=== PATIENT | male | born 1950 | race Caucasian/White ===

== ENCOUNTER 2019-12-22 14:46 | Outpatient (CLI) | payer MEDICARE, BC | END 2019-12-22 23:59 | disposition home or self-care (01) | LOC: RAD 14:46 | PROVIDERS: ATTEND Family Medicine | DX: R09.89 Other specified symptoms and signs involving the circulatory and respiratory systems (principal) | CPT/HCPCS: 71046 ==

== ENCOUNTER 2023-08-20 06:55 | Day surgery (SDC) | payer MEDICARE, BC ==
[2023-08-19 15:38] LABS: BASOPHILS % (AUTO) 0.5 % (0-1); EOSINOPHILS # (AUTO) 0.1 X10'3 (0-0.9); EOSINOPHILS % (AUTO) 0.7 % (0-6); HEMATOCRIT 37.8 % (42.0-52.0); HEMOGLOBIN 12.8 g/dl (14.0-17.9); LYMPHOCYTES # (AUTO) 1.5 X10'3 (1.1-4.8); LYMPHOCYTES % (AUTO) 18.7 % (21-51); MEAN CORPUSCULAR HEMOGLOBIN 29.2 PG (27.0-31.0); MEAN CORPUSCULAR VOLUME 86.1 FL (78-98); MEAN PLATELET VOLUME 8.3 FL (7.4-10.4); MONOCYTES # (AUTO) 0.7 X10'3 (0-0.9); MONOCYTES % (AUTO) 8.8 % (2-12); NEUTROPHILS # (AUTO) 5.8 X10'3 (1.8-7.7); NEUTROPHILS % (AUTO) 71.3 % (42-75); PLATELET COUNT 192 X10'3 (140-440); RED BLOOD COUNT 4.39 X10'6 (4.70-6.10); RED CELL DISTRIBUTION WIDTH 13.1 % (11.5-14.5); WHITE BLOOD COUNT 8.2 X10'3 (4.5-11.0)
[2023-08-19 15:46] LABS: ALBUMIN 3.4 G/DL (3.4-5.0); ANION GAP 8 (8-16); BLOOD UREA NITROGEN 24 MG/DL (7-18); BUN/CREATININE RATIO 20.2 (10.0-20.0); CHLORIDE 101 MMOL/L (99-107); CREATININE 1.19 MG/DL (0.60-1.10); GLUCOSE 113 MG/DL (70-104); POTASSIUM 3.5 MMOL/L (3.5-5.1); SODIUM 138 MMOL/L (135-145); TOTAL CARBON DIOXIDE 29.1 MMOL/L (24-32); eGFR 60 ML/MIN
[2023-08-19 15:50] LABS: APTT 26 SECONDS (22-32); INR 1.1 INR; PROTHROMBIN TIME 11.4 SECONDS (9.0-12.0)
[~2023-08-20] VITALS: Ht 177.8 cm; Wt 84.8 kg
[2023-08-20] VITALS (12 sets, daily range): BP systolic 124–154; BP diastolic 55–83; PULSE 57–67; RESP 12–21; TEMP 98; O2SAT 92–100
[~2023-08-20 06:55] MED LIST: AMI200T PO; AMLO10TA13 PO; APIX2.5T PO; ASPI-611 PO; CLON0.1T2 PO; CLON1PAT15 TOP; HYDR25TA4 PO; LISI20TA28 PO; SITA1TAB2 PO; TRAZ-251 PO
[2023-08-20] MEDS ORDERED: normal saline 1,000 ML IV SCH (07:35)
[2023-08-20] MEDS ORDERED: diphenhydrAMINE 25mg capsule PO PRN (07:35)
[2023-08-20] MEDS ORDERED: LORazepam 0.5 MG tablet PO PRN (07:35)
[2023-08-20] MEDS ORDERED: sodium bicarbonate 1meq/ml syr 150 ML in dextrose 5%-water 1,000 ML IV SCH (07:35)
[2023-08-20] MEDS ORDERED: APIX5TAB3 PO (07:41)
[2023-08-20] MEDS ORDERED: MULT-1085 PO (07:43)
[2023-08-20] MEDS ORDERED: verapamil 2.5 mg/ml inj IV ONE (07:43)
[2023-08-20] MEDS ORDERED: iohexol 350 MG/ML 50ML vial IV ONE (07:43)
[2023-08-20] MEDS ORDERED: iohexol 350MG/ML 100ml bottle IV ONE (07:43)
[2023-08-20] MEDS ORDERED: heparin 1,000unit/ml 10ml vial 10 ML ONE (07:43)
[2023-08-20] MEDS ORDERED: midazolam 1 mg/ML 2ml injection ONE ×2 (07:43→09:54)
[2023-08-20] MEDS ORDERED: fentaNYL/PF 50MCG/1 ML 2ML syringe ONE (07:43)
[2023-08-20] MEDS ORDERED: AMIO200T72 PO (07:43)
[2023-08-20] MEDS ORDERED: nitroGLYCERIN 500mcg/5mL D5W 5 ML IV ONE (07:44)
[2023-08-20] MEDS ORDERED: LIDOcaine 1% (10mg/ml) 2ml vial ONE (07:44)
[2023-08-20] MEDS ORDERED: acetylcysteine 200 MG/ml 4ml vial PO PRN (07:45)
[2023-08-20] MEDS ORDERED: SITA1TAB2 PO (07:48)
[2023-08-20 11:07] LABS: ISTAT HGB ART 11.2 g/dl (14.0-17.9); ISTAT Hct ART 33 %PCV (42-52); ISTAT O2 SATURATION ARTERIAL 92 % (95-98); ISTAT SOURCE ART
[2023-08-20] MEDS ORDERED: normal saline 1000ml 1,000 ML IV SCH (11:20)
[2023-08-20 11:37] LABS: ISTAT HGB MIX 10.9 g/dl (14.0-17.9); ISTAT Hct MIX 32 %PCV (42-52); ISTAT O2 SATURATION MIX VENOUS 75 % (60-80); ISTAT SOURCE BLNK
[2023-08-20] MEDS ORDERED: pneumococcal 23-VAL P-sac vacc 25 mcg/0.5ml vial IMVAC ONE (14:40)
== END 2023-08-20 15:03 | disposition home or self-care (01) ==
LOC: SSTAY O 06:55
PROVIDERS: ATTEND Internal Medicine Cardiovascular Disease
DX: R94.39 Abnormal result of other cardiovascular function study (principal); I25.10 Atherosclerotic heart disease of native coronary artery without angina pectoris; I10 Essential (primary) hypertension; E78.5 Hyperlipidemia, unspecified; Z79.01 Long term (current) use of anticoagulants; Z79.899 Other long term (current) drug therapy; Z23 Encounter for immunization
CPT/HCPCS: 36415; 76937; 80048; 82803; 82948; 85014; 85025; 85610; 85730; 90732; 93005; 93460; 99152; 99153; A6258; J1644; J2250; J3010; J3490; J7030; Q9967; A6402; C1725; C1751; C1894

== ENCOUNTER 2025-04-22 08:32 | Emergency (ER) | payer MEDICARE, BC ==
[~2025-04-22] VITALS: Ht 175.3 cm; Wt 95.1 kg
[~2025-04-22 08:32] MED LIST changes: -AMI200T PO; +AMIO200T72 PO; -APIX2.5T PO; +APIX5TAB3 PO; -CLON1PAT15 TOP; +MULT-1085 PO
--- NOTE | 2025-04-22 09:41 | ELECTROCARDIOGRAPH REPORT ---
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 Lawrence Christie Measurements Intervals [place] Rate: 58 P: 3 VA: 274 QRS: -72 QRSD: 151 T: 57 QT: 495 QTc: 487 Interpretive Statements Sinus bradycardia Prolonged VA interval Left bundle branch block Baseline wander in lead(s) II,III,aVF Electronically Signed On 04-29-2025 18:42:[address] Lawrence Christie Please click the below link to view image of tracing.
--- NOTE | 2025-04-22 09:59 | RADIOLOGY REPORT ---
DI CHEST,SINGLE VIEW, HISTORY: chest pain COMPARISON: None None TECHNICAL DATA: 1 view of the chest was obtained. FINDINGS: Lines and tubes: None Cardiomediastinal silhouette: normal Pulmonary vasculature: normal Lung expansion: normal Lung airspace: normal Lung interstitium: normal Pleura: normal Pneumothorax: no Bones: Unremarkable Other: no IMPRESSION: No acute intrathoracic abnormality.
--- NOTE | 2025-04-22 10:01 | RADIOLOGY REPORT ---
PROCEDURE: Pelvis radiographs. INDICATION: fall TECHNIQUE: Frontal view of the pelvis was obtained. COMPARISON: None FINDINGS: There is no evidence of fracture or dislocation. Bilateral hip joint space narrowing. The soft tissues are unremarkable. IMPRESSION: 1. No fracture or dislocation.
--- NOTE | 2025-04-22 10:22 | Physician Documentation ---
History of Present Illness ~ Chief Complaint: Mechanical Fall Stated Complaint: FALL Time Seen by MD: 09:17 HPI 74 year old male is several days s/p a ground level fall backward down a few stairs; during the fall he twisted to the right and landed on his R chest and R thigh. He does take a DOAC. Denies LOC, has been ambulatory, and denies other injury and pain as well as denying a head strike/headache. Tetanus within 5 Years?: Yes Medication Reconciliation Allergies: Coded Allergies: No Known Allergies (Unverified , 04/22/23) Scheduled Amiodarone HCl* (Amiodarone HCl*), 1 TAB PO DAILY, (Reported) Amlodipine Besylate (Amlodipine Besylate), 1 TAB PO DAILY, (Reported) Apixaban (Eliquis), 1 TAB PO BID, (Reported) Aspirin (Aspir 81), 1 TAB PO DAILY, (Reported) Clonidine HCl (Clonidine HCl), 0.1 MG PO BID, (Reported) Hydrochlorothiazide (Hydrochlorothiazide), 1 TAB PO DAILY, (Reported) Lisinopril (Lisinopril), 1 TAB PO BID, (Reported) Sitagliptin Phos/Metformin Hcl (Janumet 50-500 Mg Tablet), 1 TAB PO Q12H, (Reported) Trazodone HCl (Trazodone HCl), 1 TAB PO HS, (Reported) Discontinued Medications Multivitamin (Multi Vitamin Daily), 1 TAB PO DAILY, (Reported) Discontinued Reason: patient no longer taking Review of Systems All Other Systems at this time: Reviewed and Negative Physical Exam Vital Signs: RN Vital Signs have been reviewed: Yes, Temperature: 98.0, Source: Temporal, Heart Rate: 63, Respiratory Rate: 16, BP: 170/53, Pulse Oximetry: 100, Weight: 95.100 Oxygen Flow Rate: 0 Physical Exam HEENT: PERRL, moist oral mucosa, EOMI Pulmonary: No respiratory distress Cardiac: regular, no murmur, rub or gallop MSK: no deformity; R thigh with tender ecchymosis laterally Skin: w/d/i, no rash Neuro: alert, nonfocal Psych: normal affect Progress Results/Orders Results/Orders Orders - LIONEL THOMAS MD Chest,Single View (04/22/25 09:40) Hip,Bi,Cmplt(Ap Pelvis) (04/22/25 09:41) Ct Head (04/22/25 10:09) Completed Orders - LIONEL THOMAS MD Electrocardiogram (04/22/25 09:35) Chest,Single View (04/22/25 09:40) Hip,Bi,Cmplt(Ap Pelvis) (04/22/25 09:41) Ct Head (04/22/25 10:09) Vital Signs 04/22/25 04/22/25 08:44 09:24 Temp 98.0 Pulse 63 Resp 16 16 B/P (MAP) 170/53 Pulse Ox 100 O2 Flow Rate 0 EKG/XRAY/CT/US/VASC/MRI Chest X-Ray : Views: 1 VIEW Indication: pain Lungs: normal Mediastinum: normal Ribs/Bones: normal Abdomen: normal Impression: no acute disease CT : Interpreted By: self CT: head With Contrast?: No Impression no mass, shift, or bleed Medical Decision Making Findings 74 year old male s/p ground level fall, hematoma to R thigh but ambulatory. CT head, CXR, pelvis xray unremarkable. Will road test, reassurance and discharge with return precautions. Differential Dx:Considerations: Include: Closed head injury, Fracture(s), Cerebral contusion, Abrasion(s), Contusion(s), Hematoma(s), Laceration(s) Departure Disposition: 01 HOME / SELF CARE / HOMELESS Impression: Primary Impression: Hematoma Condition: Stable Discharge Instructions: Fall Prevention in the Home, Adult, [id number] Referrals: NO PRIMARY CARE PROVIDER (PCP) Education Educated: Patient Educated regarding: diagnosis, treatment, prognosis, need for follow up Signature Scribe Signature: . Attestation: . LIONEL THOMAS MD Apr 22, 2025 10:22
--- NOTE | 2025-04-22 10:29 | RADIOLOGY REPORT ---
EXAM: CT CT HEAD INDICATION: fall, on doac TECHNIQUE: CT of the head without intravenous contrast. Coronal and sagittal reformatted images are s ubmitted. Radiation Dose : 1. Head: CT Dose: CTDI volume is 64.2 mGy. Dose-length product is 1142.8 mGy*cm The dose indicators for CT are the volume Computed Tomography (CT) Dose Index (CTDIvol) and the Dose Length Product (DLP), and are measured in units of mGy and mGy-cm, respectively. These indicators are not patient dose, but values generated from the CT scanner acquisition factors. The report includes radiation exposure data for exposures received during this examination. All CT scans at this medical facility are performed using dose modulation techniques as appropriate to a performed exam including the following: Automated exposure control was utilized; adjustment of the MA and/or KV according to patient size; and use of iterative reconstruction technique. COMPARISON: None FINDINGS: There is no evidence of acute intracranial hemorrhage, extra-axial collection, mass effect, midline s hift, herniation or hydrocephalus. The ventricles, sulci and cisterns are age appropriate. The huddleston-white differentiation is intact. Mastoid air cells are clear. Partial opacification of the right maxillary sinus. No depressed calvarial fracture. The surrounding soft tissues are unremarkable. Postsurgical changes in the right maxilla. IMPRESSION: 1. No acute intracranial abnormality.
[2025-04-22 10:58] VITALS: BP 136/62; PULSE 68; RESP 16; TEMP 98; O2SAT 99
== END 2025-04-22 11:01 | disposition home or self-care (01) ==
LOC: ER 08:33
DX: S70.11XA Contusion of right thigh, initial encounter (principal); R51.9 Headache, unspecified; Z79.82 Long term (current) use of aspirin; W19.XXXA Unspecified fall, initial encounter; Y93.89 Activity, other specified; Y92.89 Other specified places as the place of occurrence of the external cause; Y99.8 Other external cause status
CPT/HCPCS: 70450; 71045; 73521; 93005; 99284

== ENCOUNTER 2025-04-28 08:55 | Emergency (ER) | payer MEDICARE, BC ==
[~2025-04-28] VITALS: Ht 175.3 cm; Wt 97.0 kg
[~2025-04-28 08:55] MED LIST changes: -MULT-1085 PO
[2025-04-28 09:02] VITALS: BP 156/50; PULSE 68; RESP 16; TEMP 98.5; O2SAT 99
--- NOTE | 2025-04-28 09:50 | Physician Documentation ---
History of Present Illness ~ Chief Complaint: Wound Re-Check Stated Complaint: skin graft Time Seen by MD: 09:25 OK to notify your PCP?: Yes Source: patient HPI 74-year-old gentleman came to the emergency room for wound rechecked at the graft site and donor site as he could not be seen by the surgeon who did the surgery yesterday. According to him there is no issues. No other complaints. Tetanus within 5 years?: Yes Medication Reconciliation Allergies: Coded Allergies: No Known Allergies (Unverified , 04/22/23) Scheduled Amiodarone HCl* (Amiodarone HCl*), 1 TAB PO DAILY, (Reported) Amlodipine Besylate (Amlodipine Besylate), 1 TAB PO DAILY, (Reported) Apixaban (Eliquis), 1 TAB PO BID, (Reported) Aspirin (Aspir 81), 1 TAB PO DAILY, (Reported) Clonidine HCl (Clonidine HCl), 0.1 MG PO BID, (Reported) Hydrochlorothiazide (Hydrochlorothiazide), 1 TAB PO DAILY, (Reported) Lisinopril (Lisinopril), 1 TAB PO BID, (Reported) Sitagliptin Phos/Metformin Hcl (Janumet 50-500 Mg Tablet), 1 TAB PO Q12H, (Reported) Trazodone HCl (Trazodone HCl), 1 TAB PO HS, (Reported) Discontinued Medications Multivitamin (Multi Vitamin Daily), 1 TAB PO DAILY, (Reported) Discontinued Reason: patient no longer taking Review of Systems ROS As stated above in the HPI, otherwise all systems are reviewed and negative. Physical Exam Vital Signs: Temperature: 98.5, Source: Temporal, Heart Rate: 68, Respiratory Rate: 16, BP: 156/50, Pulse Oximetry: 99, Weight: 97.000 Physical Exam Vital signs reviewed and they are well within normal range. Const: Not in acute cardiopulmonary distress Head: Atraumatic Eyes: Normal Conjunctiva ENT: Normal External Ears, Nose and Mouth. Moist mucous membranes Nose: In the middle of the bridge of the nose there is a skin graft about 1 cm in diameter and the color is darkish huddleston. No bleeding. Graft survival is questionable. Behind the left ear there is a area of donor site and is sutured and there is no bleeding no signs of infections. Neck: Full range of motion. No meningismus Resp: Clear to auscultation bilaterally. Normal work of breathing Cardio: Regular rate and rhythm, no murmurs. Skin well perfused Abd: Soft, non-tender, non-distended. Normal bowel sounds. No rebound or guarding Skin: No petechiae or rashes. Warm and dry Back: No midline or flank tenderness Ext: No cyanosis, or edema Neuro: Awake and alert Psych: Normal Mood and Affect Progress Results/Orders Results/Orders Vital Signs 04/28/25 09:02 Temp 98.5 Pulse 68 Resp 16 B/P (MAP) 156/50 Pulse Ox 99 Medical Decision Making Findings During the physical examination, the findings suggestive of acute life- threatening condition such as JVD, tracheal deviation, acidotic breathing, noisy stridorous breath sounds, pulses paradoxus, muffled heart sounds, unequal breath sounds, abdominal rigidity and rebound tenderness, focal neurological deficits, cool clammy skin, severe hypotension, severe tachycardia or bradycardia are absent. The graft site : the survival of the graft is questionable to me. He is asked to be checked by his surgeon soon. The donor site is healing good. Discharged from the emergency room with wound redressing. DISCLAIMER Inadvertent spelling and grammatical errors,inadvertent set up operator tool errors,syntax errors, grammatical errors, and spelling errors are likely due to EMR/dictation software use and do not reflect on the overall quality of patient care. Note that the electronic time recorded on this note does not necessarily reflect the actual time of the patient encounter. Departure Disposition: 01 HOME / SELF CARE / HOMELESS Impression: Primary Impression: Visit for wound check Condition: Stable Discharge Instructions: Sutured Wound Care, Wound Care, Adult Additional Instructions: Thank you for coming to our Emergency Department today. You need to see your surgeon as soon as possible. Please ask your nurse or provider if you have questions about your care today and do not leave until all your questions have been answered. Please use any medications given as directed and follow-up with your doctor (or the doctor you were referred to) in the next 1-3 days. Your primary care doctor can help to coordinate outpatient specialty care and provide authorization for specialty referral as needed. If you do not have a primary care doctor you [place] [facility] [place] You may also use motrin and tylenol as needed for fever and/or pain unless instructed otherwise by your provider or nurse. Indications for more urgent follow-up have been discussed, but you may return to the Emergen cy Department at ANY time for any worrisome or worsening symptoms. Referrals: NO PRIMARY CARE PROVIDER (PCP) Signature Scribe Signature: x Attestation: My dictation YAZAN CROUCH MD Apr 28, 2025 09:50
== END 2025-04-28 10:02 | disposition home or self-care (01) ==
LOC: ER 08:56
DX: S00.4 Superficial injury of ear (principal); Z79.899 Other long term (current) drug therapy; Z79.82 Long term (current) use of aspirin; X58.XXXD Exposure to other specified factors, subsequent encounter
CPT/HCPCS: 99282